=== PATIENT | female | born 1995 | race Caucasian/White ===

== ENCOUNTER 2017-01-13 19:11 | Emergency (ER) | payer BC, OTHER ==
--- NOTE | 2017-01-13 20:10 | EDPHY ---
H & P Time Seen by Provider: 01/13/17 19:53 HPI/ROS: CHIEF COMPLAINT: " I've got anal leakage" HISTORY OF PRESENT ILLNESS: 21-year-old immunocompetent female complaining of 3 days of itching and clear discharge in the cleft of her buttock. Nontender. No pain with defecation. No blood or pus in stool. No pain in the perianal region. No urinary complaints. No rectal foreign body insertion. PHYSICAL EXAM (Prior to examination, patient consented to physical exam, hands were washed and my usual and customary physical exam procedures followed) 1) GENERAL: Well-developed, well-nourished, alert and oriented. Appears to be in no acute distress. 2) HEAD: Normocephalic 3) HEENT: sclera anicteric 4) LUNGS: Breathing comfortably. 5) SKIN (with female Tech Nancy at bedside): Beefy red , weeping, nonvesicular intertriginous lesion in the cleft of the buttock. Does not extend into the perianal region. Does not extend into the perineum or the external genitalia. No crepitus. Smoking Status: Current some day smoker Constitutional: Initial Vital Signs Temperature (C) 36.8 C 01/13/17 19:15 Heart Rate 98 01/13/17 19:15 Respiratory Rate 16 01/13/17 19:15 Blood Pressure 132/91 H 01/13/17 19:15 O2 Sat (%) 97 01/13/17 19:15 O2 Delivery Mode Room Air Allergies/Adverse Reactions: No Known Allergies Allergy (Verified 03/08/16 12:32) Home Medications: Medication Instructions Recorded Control 01/13/17 Nystatin/Triamcin 1 dose TP BID #45 g 01/13/17 [Nystatin-Triamcinolone Ointm] MDM/Departure - MDM ED Course/Re-evaluation: I think the patient's symptoms are more than likely secondary to in a fungal etiology based on presenting symptoms. No evidence of cellulitis. No evidence of Marcela's gangrene. Doubt perianal abscess. Doubt perirectal abscess. Doubt zoster. Doubt contact dermatitis. Recommended keeping the area dry as much as possible, prescribed her topical antifungal cream. - Depart Disposition: Home, Routine, Self-Care Clinical Impression: Fungal skin infection Condition: Good Instructions: Antifungals (On the skin) Additional Instructions: Return to the emergency department if you develop pain with defecation, if you develop new or worsening symptoms, if you develop redness. Try not to itch the area. Prescriptions: Nystatin/Triamcin [Nystatin-Triamcinolone Ointm] 1 dose TP BID #45 g Referrals: ZENY Martin,. [Clinic] - 5-7 days, call for appt.
[2017-01-13 20:31] VITALS: BP 130/83; PULSE 93; RESP 18; TEMP 98.6; O2SAT 98
== END 2017-01-13 20:30 | disposition home or self-care (01) ==
DX: B36.9 Superficial mycosis, unspecified (principal); F17.200 Nicotine dependence, unspecified, uncomplicated